=== PATIENT | female | born 1985 | race American Indian/Alaskan Native ===

== ENCOUNTER 2018-08-02 12:49 | Emergency (ER) | payer OTHER ==
--- NOTE | 2018-08-02 13:52 | XRay Report ---
RIGHT KNEE, 2 views: History: Right knee pain. The bony architecture is intact without evidence of fracture or dislocation. No significant soft tissue abnormality is seen. IMPRESSION: Normal right knee.
--- NOTE | 2018-08-02 16:25 | Emergency Department Report ---
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 Pain is throbbing and dull and worse with us standing and squatting. States that she is up and down in her job can't recall the exact nature of the injury. Complaint: knee injury -: Sudden, days(s) (3) Injury: Knee: Right Type of Injury: unknown Place: home, work Severity: mild, moderate Worsens With: weight bearing, movement Associated Symptoms: swelling, able to partially bear weight, ambulatory - Related Data Previous Rx's Medication Instructions Recorded Last Taken Type Diclofenac Sodium [Voltaren] 1 applic TP BID #100 gel..gram. 08/02/18 Unknown Rx Allergies Allergy/AdvReac Type Severity Reaction Status Date / Time No Known Allergies Allergy Unverified 08/02/18 12:50 ED Review of Systems ROS: Stated complaint: R LEG PAIN Other details as noted in HPI Constitutional: denies: chills, fever Eyes: denies: eye pain, eye discharge, vision change ENT: denies: ear pain, throat pain Respiratory: denies: cough, shortness of breath, wheezing Cardiovascular: denies: chest pain, palpitations Endocrine: no symptoms reported Gastrointestinal: denies: abdominal pain, nausea, diarrhea Genitourinary: denies: urgency, dysuria, discharge Musculoskeletal: arthralgia. denies: back pain, joint swelling Skin: denies: rash, lesions Neurological: denies: headache, weakness, paresthesias Psychiatric: denies: anxiety, depression Hematological/Lymphatic: denies: easy bleeding, easy bruising ED Past Medical Hx - Past Medical History Hx Asthma: Yes - Social History Smoking Status: Never Smoker Substance Use Type: None - Medications Home Medications: Home Medications Medication Instructions Recorded Confirmed Last Taken Type Diclofenac Sodium [Voltaren] 1 applic TP BID #100 gel..gram. 08/02/18 Unknown Rx ED Physical Exam - General Limitations: No Limitations General appearance: alert, in no apparent distress - Head Head exam: Present: atraumatic, normocephalic - Eye Eye exam: Present: normal appearance - ENT ENT exam: Present: mucous membranes moist - Neck Neck exam: Present: normal inspection - Respiratory Respiratory exam: Present: normal lung sounds bilaterally. Absent: respiratory distress - Cardiovascular Cardiovascular Exam: Present: regular rate, normal rhythm. Absent: systolic murmur, diastolic murmur, rubs, gallop - GI/Abdominal GI/Abdominal exam: Present: soft, normal bowel sounds - Extremities Exam Extremities exam: Present: normal inspection, other (no Homans sign, no cords sign, no popliteal mass. Pulses are 2+). Absent: joint swelling, calf tenderness - Expanded Lower Extremity Exam Right Knee exam: Present: tenderness, crepidus, full knee extension (there is pain noted with Apley's grind. Pain with manipulation of the patella). Absent: abrasion, laceration, dislocation, erythema Ankle exam: Present: normal inspection Foot/Toe exam: Present: normal inspection Neuro vascular tendon exam: Present: no vascular compromise - Back Exam Back exam: Present: normal inspection. Absent: paraspinal tenderness - Neurological Exam Neurological exam: Present: alert, oriented X3 - Psychiatric Psychiatric exam: Present: normal affect, normal mood - Skin Skin exam: Present: warm, dry, intact, normal color. Absent: rash ED Course Vital Signs 08/02/18 13:04 Temperature 98.1 F Pulse Rate 87 Respiratory 16 Rate Blood Pressure 114/72 O2 Sat by Pulse 99 Oximetry Critical care attestation.: If time is entered above; I have spent that time in minutes in the direct care of this critically ill patient, excluding procedure time. ED Disposition Clinical Impression: Right knee injury Disposition: DC-01 TO HOME OR SELFCARE Is pt being admited?: No Does the pt Need Aspirin: No Condition: Stable Instructions: Knee Pain (ED) Prescriptions: Diclofenac Sodium [Voltaren] 1 applic TP BID #100 gel..gram. Referrals: TREVA VALENCIA MD [Primary Care Provider] - 3-5 Days LIAT ARRIAGA MD [Staff Physician] - 3-5 Days
[2018-08-02 16:49] VITALS: BP 106/52
== END 2018-08-02 17:11 | disposition home or self-care (01) ==
LOC: ED 12:49
DX: S89.91XA Unspecified injury of right lower leg, initial encounter (principal); J45.909 Unspecified asthma, uncomplicated; X58.XXXA Exposure to other specified factors, initial encounter; Y93.89 Activity, other specified; Y92.69 Other specified industrial and construction area as the place of occurrence of the external cause; Y99.8 Other external cause status
CPT/HCPCS: 36415; 84703

== ENCOUNTER 2020-09-16 12:45 | Outpatient (CLI) | payer MEDICAID, OTHER ==
[2020-09-16 13:31] VITALS: BP 122/63
[2020-09-16] MEDS: LACTATED RINGERS 1,000 ML IV SCH ×2 (14:10→15:00)
[2020-09-16 14:34] LABS: Bilirubin,Urine NEG (Negative); Blood,Urine NEG (Negative); Color,Urine Yellow (Yellow); Mucus,Urine FEW /HPF; Urobilinogen,Urine < 2.0 mg/dL (<2.0)
[2020-09-16] MEDS ORDERED: LACTATED RINGERS 500 ML IV ONE (14:40)
[2020-09-16] MEDS ORDERED: TERBUTALINE 1 MG/1 ML INJ SUB-Q SCH (15:00)
--- NOTE | 2020-09-16 16:57 | Ultrasound Report ---
ULTRASOUND OBSTETRIC LIMITED INDICATION / CLINICAL INFORMATION: ptl. Clinical Gestational Age (GA) in weeks, days: 30 weeks 1 day TECHNIQUE: Transabdominal. COMPARISON: None available. FINDINGS: HEART RATE (beats per minute): 154 AMNIOTIC FLUID INDEX (cm) = 16.2 (normal = 7-24 cm) PRESENTATION: Cephalic. ADDITIONAL FINDINGS: Posterior fundal placenta is free of the os. There is no evidence of placental a bruption. IMPRESSION: 1. Single live intrauterine in cephalic presentation. 2. No significant abnormality identified. 3. CORRINE measures 16.2 cm. Signer Name: Sean Zhong MD Signed: 09/16/2020 4:53 PM Workstation Name: [email or web address] [id number]
== END 2020-09-16 17:29 | disposition home or self-care (01) ==
LOC: TRG 12:45 → APU 12:45 → TRG 12:53
PROVIDERS: ATTEND Obstetrics & Gynecology
DX: O62.9 Abnormality of forces of labor, unspecified (principal); O13.3 Gestational [pregnancy-induced] hypertension without significant proteinuria, third trimester; Z3A.30 30 weeks gestation of pregnancy
CPT/HCPCS: 59025; 76815; 81001; 96360; 96361; 96372; J3105; J7120

== ENCOUNTER 2020-11-01 22:06 | Outpatient (CLI) | payer MEDICAID ==
[2020-11-01 22:36] VITALS: BP 115/76
[2020-11-01] MEDS ORDERED: LACTATED RINGERS 1,000 ML ONE (22:53)
[2020-11-01] MEDS ORDERED: LACTATED RINGERS 1000 ML IV SOLN ONE (23:05)
[2020-11-01] MEDS ORDERED: LACTATED RINGERS 1,000 ML IV ONE (23:10)
--- NOTE | 2020-11-02 00:34 | Ultrasound Report ---
ULTRASOUND OBSTETRIC LIMITED ULTRASOUND BIOPHYSICAL PROFILE INDICATION / CLINICAL INFORMATION: wellbeing. Clinical Gestational Age (GA) in weeks, days: 36 weeks 5 days TECHNIQUE: Transabdominal. COMPARISON: Prior ultrasound 09/16/2020 FINDINGS: BREATHING MOVEMENT = 2 GROSS BODY MOVEMENT = 2 TONE = 2 QUALITATIVE AMNIOTIC FLUID VOLUME = 2 TOTAL BIOPHYSICAL SCORE = 8/8 HEART RATE (beats per minute): 128 AMNIOTIC FLUID INDEX (cm) = 16.2 (normal = 7-24 cm) PRESENTATION: Cephalic. ADDITIONAL FINDINGS: Placenta is located posterior/right lateral, without previa. No evidence of abru ption. IMPRESSION: 1. Biophysical Score = 8/8 2. Single viable IUP in cephalic presentation with normal CORRINE. Signer Name: Jania Oneal MD Signed: 11/02/2020 12:30 AM Workstation Name: [id number]
== END 2020-11-02 02:20 | disposition home or self-care (01) ==
LOC: TRG 22:06 → APU 22:14 → TRG 11-02 02:20
PROVIDERS: ATTEND Obstetrics & Gynecology
DX: O62.9 Abnormality of forces of labor, unspecified (principal); O26.853 Spotting complicating pregnancy, third trimester; Z3A.36 36 weeks gestation of pregnancy
CPT/HCPCS: 59025; 76815; 76819; J7120; 96360

== ENCOUNTER 2020-11-18 08:15 | Inpatient (IN) | payer MEDICAID ==
[2020-11-18] MEDS ORDERED: NALOXONE 0.4 MG/1 ML INJ IV PRN ×2 (11:33→14:53)
[2020-11-18] MEDS ORDERED: NalbUPHINE 10 MG/1 ML INJ IV PRN (11:33)
[2020-11-18] MEDS: LACTATED RINGERS 1,000 ML IV SCH ×2 (11:59→12:45)
[2020-11-18] MEDS ORDERED: PROMETHAZINE 25 MG TAB PO PRN (12:00)
[2020-11-18] MEDS ORDERED: HYDROmorphone 1 MG/1 ML INJ IV PRN (12:00)
[2020-11-18] MEDS ORDERED: ONDANSETRON 4 MG/2 ML INJ IV PRN ×2 (12:00→14:53)
[2020-11-18] MEDS ORDERED: PROMETHAZINE 25 MG RECT SUPP PR PRN (12:00)
[2020-11-18] MEDS ORDERED: diphenhydrAMINE 50 MG/ML VIAL IV PRN (12:00)
--- NOTE | 2020-11-18 12:03 | Ultrasound Report ---
ULTRASOUND OBSTETRIC LIMITED INDICATION / CLINICAL INFORMATION: EFW, CORRINE, presentation. Clinical Gestational Age (GA) in weeks, days: 39 weeks 1 day TECHNIQUE: Transabdominal. COMPARISON: 11/01/2020 FINDINGS: Single viable intrauterine in transverse, head to maternal left presentation with hea rt rate measuring 123 bpm. CORRINE measures 20.7 cm. MEASUREMENTS: - Biparietal Diameter = 9.0 cm = 36 weeks 3 days - Head Circumference = 33.9 cm = 39 weeks 0 days - Abdominal Circumference = 35.6 cm = 39 weeks 4 days - Femur Length = 6.9 cm = 35 weeks 2 days -Total AUA = 37 weeks 4 days - Estimated Weight (in grams, if calculated): 3418 IMPRESSION: 1. Single viable IUP with ultrasound age of 37 weeks 4 days. 2. No significant abnormality. Signer Name: Sean Zhong MD Signed: 11/18/2020 11:59 AM Workstation Name: [email or web address] [id number]
--- NOTE | 2020-11-18 12:26 | History and Physical Report ---
History of Present Illness Date of examination: 11/18/20 Date of admission: 11/18/20 08:15 Chief complaint: "I was sent here by my doctor for delivery" History of present illness: 35 y/o presented to [facility] @ 39.1 wks for an IOL and TOLAC. She initiated her pnc @ [facility] @ 12 5/7 wks. Pt was co managed by [facility] r/t maternal obesity. She has a hx of recurrent utis, closely spaced preg, and LSIL with neg HPV on her pap (colpo wnl). Her GBS is neg. Upon adm presentation was found to be in transverse position. Pt was admitted and prepped for a repeat LTCS. Dr Candelaria was notified. 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 History: abnormal PAP smear Family/Genetic History: diabetes, hypertension Social history: single, full code - Obstetrical History Expected Date of Delivery: 11/24/20 Actual Gestation: 39 Week(s) 1 Day(s) : 4 Para: 2 Spontaneous Abortions: 1 Number of Living Children: 2 Medications and Allergies Allergies Allergy/AdvReac Type Severity Reaction Status Date / Time No Known Allergies Allergy Verified 09/16/20 13:31 Home Medications Medication Instructions Recorded Confirmed Last Taken Type One Daily Tablet 1 tab PO DAILY 11/18/20 11/18/20 11/17/20 History Vitamin D (Nf) 1 tab PO QWEEK 11/18/20 11/18/20 1 Week Ago History ~11/11/20 Active Meds: Active Medications Citric Acid/Sodium Citrate (Bicitra Oral Liqd 30ml) 30 ml PO ONCE ONE Stop: 11/18/20 12:31 Diphenhydramine HCl (Diphenhydramine 50 Mg/Ml Vial) 12.5 mg IV Q2H PRN PRN Reason: Itching Famotidine (Famotidine 20 Mg/2 Ml Inj) 20 mg IV ONCE ONE Stop: 11/18/20 12:31 Hydromorphone HCl (Hydromorphone 1 Mg/1 Ml Inj) 0.5 mg IV Q4H PRN PRN Reason: breakthrough pain > 7/10 Cefazolin Sodium (Ancef/Sterile Water 2 Gm/20 Ml) 2 gm in 20 mls @ 80 mls/hr IV PREOP NR; Protocol Stop: 11/19/20 11:59 Lactated Ringer's (Lactated Ringers) 1,000 mls @ 2,250 mls/hr IV PREOP LAURA Stop: 11/19/20 12:57 Last Admin: 11/18/20 11:59 Dose: 2,250 mls/hr Documented by: Oxytocin/Sodium Chloride (Pitocin/Ns 30 Unit/500ml) 30 units in 500 mls @ 0 mls/hr IV TITR LAURA; Protocol Metoclopramide HCl (Metoclopramide 10 Mg/2 Ml Inj) 10 mg IV ONCE ONE Stop: 11/18/20 12:31 Nalbuphine HCl (Nalbuphine 10 Mg/1 Ml Inj) 2.5 mg IV Q2H PRN PRN Reason: Itching Naloxone HCl (Naloxone 0.4 Mg/1 Ml Inj) 0.2 mg IV Q2MIN PRN PRN Reason: Res Rate </= 8 or 02 SAT < 92% Ondansetron HCl (Ondansetron 4 Mg/2 Ml Inj) 4 mg IV Q8H PRN PRN Reason: Nausea And Vomiting Promethazine HCl (Promethazine 25 Mg Tab) 25 mg PO Q6H PRN PRN Reason: Nausea And Vomiting Promethazine HCl (Promethazine 25 Mg Rect Supp) 25 mg CO Q6H PRN PRN Reason: Nausea And Vomiting Review of Systems All systems: negative Eyes: deferred Ears, nose, mouth and throat: deferred Breasts: normal Genitourinary: normal appearance Rectal Exam: normal exam-external/orifice - Vital Signs Vital signs: Vital Signs Temp Resp Pulse Ox 97.9 F 16 97 11/18/20 09:04 11/18/20 09:04 11/18/20 09:04 Temp Pulse Resp BP Pulse Ox 97.9 F 85 16 121/80 98 11/18/20 09:04 11/18/20 12:19 11/18/20 09:04 11/18/20 12:01 11/18/20 12:19 - Physical Exam Breasts: Positive: normal Abdomen: Positive: normal appearance, soft, normal bowel sounds Genitourinary (Female): Positive: normal external genitalia, normal perenium Vulva: both: normal Vagina: Positive: normal moisture Uterus: Positive: enlarged, normal contour, other (gravid) Adnexa: both: normal Anus/Rectum: Positive: normal perianal skin Extremities: Positive: normal - Obstetrical FHR: auscultation normal, category 1 Uterine Contraction Monitor Mode: External Cervical Dilatation: 1.5 Cervical Effacement Percentage: 40 station: -3 Uterine Contraction Pattern: Irregular Uterine Tone Measurement Phase: Resting Uterine Contraction Intensity: Mild Results All other labs normal. Assessment and Plan A: IUP@ 39.1 wks Hx of LTCS in 2019 Obesity Recurrent UTI Abnormal pap (colpo wnl) P: Admit to L&D for repeat LTCS r/t transverse lie Continuous monitoring Prep for c/s Dr Candelaria was consulted - Patient Problems (1) Supervision of normal IUP (intrauterine ) in multigravida Current Visit: Yes Status: Acute (2) History of delivery Current Visit: Yes Status: Acute (3) Transverse lie Current Visit: Yes Status: Acute (4) Obesity Current Visit: Yes Status: Acute
[2020-11-18] MEDS ORDERED: ceFAZolin/Water 2 GM/20 ML 2 GM/20 ML SYRINGE IV NR ×2 (12:30→14:00)
[2020-11-18] MEDS ORDERED: BICITRA ORAL LIQD 30ML PO ONE ×2 (12:30→13:29)
[2020-11-18] MEDS ORDERED: FAMOTIDINE 20 MG/2 ML INJ IV ONE ×2 (12:30→13:29)
[2020-11-18] MEDS ORDERED: OXYTOCIN DRIP 30 UNITS/500 ML BAG IV SCH ×3 (12:30→16:00)
[2020-11-18] MEDS ORDERED: METOCLOPRAMIDE 10 MG/2 ML INJ IV ONE ×2 (12:30→13:29)
[2020-11-18 12:56] LABS: Basophils % (Auto) 0.2 % (0.0-1.8); Eosinophils # (Auto) 0.1 K/mm3 (0.0-0.4); Eosinophils % (Auto) 1.6 % (0.0-4.3); Hematocrit 32.9 % (30.3-42.9); Hemoglobin 11.1 gm/dl (10.1-14.3); Lymphocytes # (Auto) 1.4 K/mm3 (1.2-5.4); Lymphocytes % (Auto) 20.3 % (13.4-35.0); Mean Corpuscular HGB Conc 34 % (30-34); Mean Corpuscular Volume 83 fl (79-97); Monocytes # (Auto) 0.6 K/mm3 (0.0-0.8); Monocytes % (Auto) 9.7 % (0.0-7.3); Platelet Count 208 K/mm3 (140-440); Red Blood Count 3.95 M/mm3 (3.65-5.03); Red Cell Distribution Width 16.4 % (13.2-15.2)
[2020-11-18] MEDS ORDERED: ONDANSETRON 4 MG/2 ML INJ ONE (13:11)
[2020-11-18] MEDS ORDERED: dexAMETHasone 20 MG/5 ML VIAL ONE (13:11)
[2020-11-18] MEDS ORDERED: KETOROLAC 30 MG/1 ML INJ ONE (13:11)
[2020-11-18] MEDS ORDERED: BUPIVACAINE/PF (0.5%) 5 MG/1 ML 30 ML VIAL INFILTRATI ONE (13:11)
--- NOTE | 2020-11-18 13:21 | Anesthesia Day of Surgery ---
Anesthesia Day of Surgery - Day of Surgery Patient Examined: Yes Patient H&P Reviewed: Yes Patient is NPO: Yes Beta Blockers: No Cardiac Clearance: No Pulmonary Clearance: No Luc's Test: N/A
--- NOTE | 2020-11-18 13:22 | Anesthesia Consultation ---
Anesthesia Consult and Med Hx Date of service: 11/18/20 - Airway Anesthetic Teeth Evaluation: Good ROM Head & Neck: Adequate Mental/Hyoid Distance: Adequate Mallampati Class: Class II Intubation Access Assessment: Probably Good - Pulmonary Exam CTA: Yes - Cardiac Exam Cardiac Exam: RRR - Pre-Operative Health Status ASA Pre-Surgery Classification: ASA2 Proposed Anesthetic Plan: Spinal Nerve Block: TAP - Pulmonary Hx Smoking: No Hx Asthma: Yes (no meds) Hx Sleep Apnea: No - Cardiovascular System Hx Hypertension: No Hx Heart Attack/AMI: No Hx Angina: No - Central Nervous System Hx Seizures: No Hx Psychiatric Problems: No - Gastrointestinal Hx Gastroesophageal Reflux Disease: No - Endocrine Hx Renal Disease: No Hx Liver Disease: No Hx Insulin Dependent Diabetes: No Hx Non-Insulin Dependent Diabetes: No Hx Hypothyroidism: No Hx Hyperthyroidism: No - Hematic Hx Anemia: No Hx Sickle Cell Disease: No - Other Systems Hx Alcohol Use: Yes (occasionally prior to )
[2020-11-18] MEDS ORDERED: LACTATED RINGERS 1,000 ML IV SCH (13:30)
[2020-11-18] MEDS ORDERED: ceFAZolin/STERILE WATER 2 GM/20 ML SYRINGE IV ONE (13:39)
[2020-11-18] MEDS ORDERED: PHENYLEPHRINE/NS 1,000 MCG/10 ML SYRINGE (OR USE) IV ONE (13:56)
[2020-11-18] MEDS ORDERED: LACTATED RINGERS 1,000 ML ONE (13:56)
[2020-11-18] MEDS ORDERED: WATER FOR IRRIG STERILE 1,500 ML BOTTLE IR ONE (14:07)
[2020-11-18] MEDS ORDERED: SODIUM CHLORIDE 0.9% IRR 1,500 ML BOTTLE IR ONE (14:07)
--- NOTE | 2020-11-18 14:17 | Progress Note ---
Spinal Anesthesia Block - Spinal Anesthesia Block Start Time: 01:39 Stop Time: 01:50 Performed by:: CRISTINE VASQUES (Grazyna Dubois [facility]) Procedure: Spinal anesthesia block is being performed for [C/S]. H&P, labs have been reviewed. Patient's questions and concerns have been answered. Informed consent has been performed. Timeout has was performed. Patient in sitting position on side of bed. Sterile prep and drape was performed. 3 mL 1% li docaine skin wheal at L [3]-L [4]. Needle introducer advanced. 25-gauge spinal needle advanced, [+] CSF [-] blood. [Marcaine 10mg and Precedex 5mcg] Spinal dose was given. All needles removed. Patient tolerated procedure well.
[2020-11-18] MEDS ORDERED: WITCH HAZEL/ GLYCERIN PAD TP PRN (14:53)
[2020-11-18] MEDS ORDERED: HYDROCORTISONE 25 MG RECTAL SUPP PR PRN (14:53)
[2020-11-18] MEDS ORDERED: ACETAMINOPHEN 325 MG TAB PO PRN (14:53)
[2020-11-18] MEDS ORDERED: MORPHINE 4 MG/1 ML INJ IV PRN (14:53)
[2020-11-18] MEDS ORDERED: LANOLIN/ZINC/DIMETHICONE (LANSINOH) 7 GM TP PRN (14:53)
[2020-11-18] MEDS ORDERED: SENNOSIDES 8.6 MG TAB PO PRN (14:53)
[2020-11-18] MEDS ORDERED: SIMETHICONE 80 MG CHEW TAB PO PRN (14:53)
[2020-11-18] MEDS ORDERED: MORPHINE 2 MG/1 ML INJ IV PRN (14:53)
--- NOTE | 2020-11-18 15:05 | Procedure Note ---
Date of procedure: 11/18/20 Pre-op diagnosis: 40 wk IUP, TRANSVERSE LIE, PREVIOUS CSECTION Post-op diagnosis: same Procedure: This is Dr. Navarro dictating operative report on Jessi Agrawal. Date of surgery is 11/18/2020. The patient is a 35-year-old Afro[place] female 3 para 2-0-0-2. Status post 1 vaginal delivery and then 1 section. We attempted a trial of labor after section however the patient was found to have a transverse lie and so we resorted to a repeat section. The patient was taken to the OR where she was prepped in the usual fashion. Timeout was done and we all concurred. She was then draped in the usual fashion she had an indwelling Gunter catheter. A Pfannenstiel incision was made along the previous Pfannenstiel incision. We entered the abdominal cavity anatomically. Vesicouterine peritoneum was opened transversely with Metzenbaums. A low transverse incision made in the lower uterine segment with a scalpel. The baby was rotated to a vertex presentation and we delivered the baby is a vertex presentation. The time of surgery was 45 minutes. The baby weight 8 pounds 3 ounces Apgars 9 and 9. The fluid infusion was 1400 urine output was 100 the blood loss was 563 cc. The placenta was delivered intact Subsequently we delivered the uterus X abdominally and the uterine cavity was cleaned of debris membranes and tissue uterine incision was then repaired in 2 layers with 2 oh was used with 0 Vicryl. Uterine incision was hemostatic vesicouterine peritoneum was repaired running 2-0 chromic on a small needle. Uterine incision was hemostatic tubes and ovaries appeared to be normal we suction the gutters with suction All instruments removed from abdominal cavity instrument count needle lap and sponge count was correct anterior abdominal peritoneum was repaired with running 2-0 Vicryl. The fascia repaired running 0 Vicryl in a locking in a continuous fashion. The subcutaneous was tissue were closed with a running 2-0 chromic. Skin was closed with a running subcuticular 4-0 Vicryl on a Rex needle and drape with Dermabond the patient tolerated procedure well she was then returned to recovery room in stable condition end of operative note. Anesthesia: spinal Surgeon: ARABELLA NAVARRO Estimated blood loss: other (563) IV fluids: 1,400 Urine output: 100 Pathology: none Specimen disposition: discarded Condition: stable Disposition: PACU
--- NOTE | 2020-11-18 16:20 | Progress Note ---
Regional Anesthesia Block - Regional Anesthesia Block Start Time: 15:08 Stop Time: 15:15 Performed By:: CRISTINE VASQUES (Grazyna DEAL) Procedure: Patient consented for TAP block for post surgical pain management. Patient identified, monitors placed, and time out performed. Mid axillary TAP identified bilaterally via ultrasound. Skin prepped bilaterally with [chlorhexidine] and [20g stimuplex] needle advanced to the TAP. 30ml [Marcaine 0.25% with 25mcg Precedex and Decadron 5mg] injected under ultrasound guidance on the [left] side. 30ml [Marcaine 0.25% with 25mcg Precedex and Decadron 5mg] injected under ultrasound guidance on the [right] side. Negative aspiration every 5mL, Patient tolerated the procedure well. No apparent complications seen.
[2020-11-18 16:46] LABS: Basophils % (Auto) 0.2 % (0.0-1.8); Eosinophils # (Auto) 0.1 K/mm3 (0.0-0.4); Eosinophils % (Auto) 0.9 % (0.0-4.3); Hematocrit 31.1 % (30.3-42.9); Hemoglobin 10.3 gm/dl (10.1-14.3); Lymphocytes # (Auto) 1.3 K/mm3 (1.2-5.4); Lymphocytes % (Auto) 18.7 % (13.4-35.0); Mean Corpuscular HGB Conc 33 % (30-34); Mean Corpuscular Volume 85 fl (79-97); Monocytes # (Auto) 0.6 K/mm3 (0.0-0.8); Monocytes % (Auto) 8.6 % (0.0-7.3); Platelet Count 203 K/mm3 (140-440); Red Blood Count 3.69 M/mm3 (3.65-5.03); Red Cell Distribution Width 16.5 % (13.2-15.2)
[2020-11-18] MEDS ORDERED: D5W/LACTATED RINGERS 1,000 ML IV SCH (18:00)
[2020-11-19 03:41] LABS: Hematocrit 29.8 % (30.3-42.9); Hemoglobin 9.9 gm/dl (10.1-14.3)
[2020-11-19] MEDS: HYDROcodone/ACETAMINOPHEN 5-325 MG TAB PO PRN ×3 (06:49→18:26)
--- NOTE | 2020-11-19 13:50 | Progress Note ---
Assessment and Plan A: day 1 S/P repeat LTCS. Anemia. Coronavirus positive. P: Supplement with oral iron. Coronavirus precautions. Continue routine /postop care. Subjective - Subjective Date of service: 11/19/20 Principal diagnosis: day 1 S/P repeat LTCS Patient reports: appetite normal, voiding normally, pain well controlled, flatus, ambulating normally, no dizzy ambulation, no nauseated [place]: doing well Objective - Vital Signs Latest vital signs: Vital Signs Temp Pulse Resp BP BP Pulse Ox 11/19/20 12:20 98.7 F 96 H 17 130/79 97 11/19/20 08:00 98.2 F 102 H 18 127/78 97 11/19/20 06:30 98.2 F 82 18 125/82 99 11/19/20 01:45 98.1 F 82 18 123/76 98 11/18/20 21:19 98.0 F 86 18 111/65 100 11/18/20 16:45 97.3 F L 76 20 110/59 11/18/20 16:00 97.7 F 77 17 102/53 97 11/18/20 15:45 97.8 F 70 14 99/55 97 11/18/20 15:30 97.7 F 76 16 101/56 98 11/18/20 15:15 77 13 97/47 98 11/18/20 15:10 71 13 99/35 99 11/18/20 15:02 98.3 F 75 13 104/38 93 Intake and Output 11/18/20 11/19/20 11/19/20 23:59 07:59 15:59 Intake Total 240 600 Output Total 400 2300 1100 Balance -160 -1700 -1100 Intake: Intake, Free Water 240 600 Output: Urine 400 2300 1100 Indwelling Catheter 200 1600 Void 700 1100 Other: Total, Output Amount 200 400 600 # Voids Void 1 - Exam Cardiovascular: Present: Regular rate Lungs: Present: Clear to auscultation Abdomen: Present: normal appearance, soft, normal bowel sounds. Absent: distention, tenderness, guarding Uterus: Present: normal, firm, fundal height below umbilicus. Absent: bogginess, tenderness Extremities: Present: normal. Absent: tenderness, edema Incision: Present: normal, dry, intact - Labs Labs: Abnormal lab results 11/18/20 11/18/2011/19/21 Range/Units 09:12 15:55 03:12 Hgb 9.9 L (10.1-14.3) gm/dl Hct 29.8 L (30.3-42.9) % RDW 16.5 H (13.2-15.2) % Pender % (Auto) 8.6 H (0.0-7.3) % Seg Neutrophils % 71.6 H (40.0-70.0) % Coronavirus (PCR) Positive A (Negative)
[2020-11-19] MEDS: IBUPROFEN 600 MG TAB PO PRN (14:56)
[2020-11-19] MEDS: FERROUS SULFATE 325 MG TAB PO SCH (14:56)
[2020-11-20] MEDS: IBUPROFEN 600 MG TAB PO PRN ×3 (01:16→17:29)
[2020-11-20] MEDS: FERROUS SULFATE 325 MG TAB PO SCH (07:56)
[2020-11-20] MEDS: HYDROcodone/ACETAMINOPHEN 5-325 MG TAB PO PRN ×3 (07:57→22:26)
--- NOTE | 2020-11-20 10:58 | Progress Note ---
Assessment and Plan pp exam for c/s. Subjective - Subjective Principal diagnosis: day 2 S/P repeat LTCS Patient reports: appetite normal, voiding normally, pain well controlled, ambulating normally [place]: doing well Objective - Vital Signs Latest vital signs: Vital Signs Temp Pulse Resp BP BP Pulse Ox 11/20/20 08:41 98.3 F 82 18 131/80 99 11/20/20 07:57 20 11/20/20 07:55 20 11/20/20 01:16 12 11/20/20 00:00 98.1 F 102 H 20 116/72 97 11/19/20 15:30 97.7 F 95 H 17 111/62 98 11/19/20 12:20 98.7 F 96 H 17 130/79 97 Intake and Output 11/19/20 11/20/20 11/20/20 23:59 07:59 15:59 Intake Total 240 120 240 Balance 240 120 240 Intake: Oral 240 120 240 Other: Total, Intake Amount 240 120 240 # Voids Void 1 1 1 - Exam Abdomen: Present: normal appearance, soft, other (wound healing.) Uterus: Present: normal, firm Extremities: Present: normal Incision: Present: normal, dry, intact
--- NOTE | 2020-11-20 14:39 | Post Anesthesia Evaluation ---
- Post Anesthesia Evaluation Patient Participated: Yes Airway Patent: Yes Stable Respiratory Function: Yes Nausea/Vomiting: No Temp > 96.8F: Yes Pain Manageable: Yes Adequeate Hydration: Yes Anesthesia Complications: No Block Receding Appropriately: Yes Patient on Ventilator: No
[2020-11-21] MEDS: HYDROcodone/ACETAMINOPHEN 5-325 MG TAB PO PRN (07:30)
[2020-11-21] MEDS: IBUPROFEN 600 MG TAB PO PRN (13:29)
--- NOTE | 2020-11-21 16:22 | Progress Note ---
Assessment and Plan A: /postop day 3 S/P repeat LTCS. Anemia. Positive for coronavirus (asymptomatic). P: Discharge patient home today. Discussed with patient /postop discharge instructions and warning signs. Care of incision and activity restrictions discussed with patient. Advised patient to continue taking her vitamin and iron supplements at home. Advised patient to avoid intercourse, lifting, driving, stair climbing, and housework. Advised patient to follow up at [facility] office in 1 week. Advised patient to self quarantine at home due to coronavirus and to return promptly if she develops symptoms. Patient voiced understanding of all instructions. Subjective - Subjective Date of service: 11/21/20 Principal diagnosis: day 3 S/P repeat LTCS Interval history: Patient desires discharge home today. Patient is positive for coronavirus but denies cough, shortness of breath, chest pain, headache, chills or fever, body aches, N/V, or any other problems. Patient reports: appetite normal, voiding normally, pain well controlled, flatus, ambulating normally, no dizzy ambulation, no nauseated [place]: doing well Objective - Vital Signs Latest vital signs: Vital Signs Temp Pulse Resp BP Pulse Ox 11/21/20 00:30 98.4 F 84 20 118/71 97 11/20/20 18:06 99.0 F 86 20 131/90 98 11/20/20 17:29 20 Intake and Output 11/21/20 11/21/20 11/21/20 07:59 15:59 23:59 Intake Total 360 Balance 360 Intake: Oral 360 Other: Total, Intake Amount 120 # Voids Void 1 - Exam Cardiovascular: Present: Regular rate Lungs: Present: Clear to auscultation Abdomen: Present: normal appearance, soft. Absent: distention, tenderness, guarding, rigidity Uterus: Present: normal, firm, fundal height below umbilicus. Absent: bogginess, tenderness Extremities: Present: normal. Absent: tenderness, edema Incision: Present: normal, dry, intact
[2020-11-21 17:21] VITALS: BP 139/88
--- NOTE | 2020-11-21 18:24 | Discharge Summary ---
Providers - Providers Date of Admission: 11/18/20 08:15 Date of discharge: 11/21/20 Attending physician: ARABELLA NAVARRO MD Primary care physician: JULIO BANUELOS Hospitalization Reason for admission: section Delivery: Procedure: repeat low transverse Incision: normal, dry, intact Discharge diagnosis: IUP at term delivered Pertinent studies: Labs Hospital course: Stable hospital course Condition at discharge: Good Disposition: DC-01 TO HOME OR SELFCARE - Discharge Diagnoses (1) Term delivered Status: Acute Plan - Provider Discharge Summary Activity: routine, no sex for 6 weeks, no heavy lifting 4 weeks, no strenuous exercise Diet: routine Instructions: routine Additional instructions: Continue taking your vitamins and iron supplements at home. Follow up at [facility] tomorrow morning for BP check. Call your doctor immediately for: * Fever > 100.5 * Heavy vaginal bleeding ( >1 pad per hour) * Severe persistent headache * Shortness of breath * Reddened, hot, painful area to leg or breast * Drainage or odor from incision. * Keep incision clean and dry at all times and follow doctor's instructions regarding bathing/showering - Follow up plan Follow up: JULIO BANUELOS MD [Primary Care Provider] - 11/22/20 Forms: [facility] Discharge Summary
== END 2020-11-21 18:31 | disposition home or self-care (01) | DRG 765 ==
LOC: UNDOADMIN 08:15 → LD 08:15 → OB 16:52
PROC: 10D00Z1 Extraction of Products of Conception, Low, Open Approach (ICD-10-PCS; principal; 2020-11-18)
PROC: 3E0T3BZ Introduction of Anesthetic Agent into Peripheral Nerves and Plexi, Percutaneous Approach (ICD-10-PCS; 2020-11-18)
DX: O34.211 Maternal care for low transverse scar from previous cesarean delivery (principal); U07.1 COVID-19; O75.3 Other infection during labor; O98.52 Other viral diseases complicating childbirth; O99.02 Anemia complicating childbirth; O99.214 Obesity complicating childbirth; K63.5 Polyp of colon; O99.52 Diseases of the respiratory system complicating childbirth; J45.909 Unspecified asthma, uncomplicated; Z3A.39 39 weeks gestation of pregnancy; Z37.0 Single live birth; Z83.3 Family history of diabetes mellitus; Z82.49 Family history of ischemic heart disease and other diseases of the circulatory system; D62 Acute posthemorrhagic anemia
CPT/HCPCS: 36415; 76816; 85014; 85018; 85025; 86850; 86900; 86901; G0378; J0690; J1100; J1885; J2270; J2370; J2405; J2765; J3490; J7120; J7121; U0003

== ENCOUNTER 2022-02-01 11:42 | Emergency (ER) | payer MEDICAID | END 2022-02-02 00:26 | disposition left against medical advice (07) | LOC: ED 11:42 | DX: R10.9 Unspecified abdominal pain (principal); Z53.21 Procedure and treatment not carried out due to patient leaving prior to being seen by health care provider ==